=== PATIENT | male | born 1970 | race Caucasian/White ===

== ENCOUNTER → 2021-01-03 | Outpatient (CLI) | payer OTHER | LOC: MHCPAIN 13:00 | DX: M47.816 Spondylosis without myelopathy or radiculopathy, lumbar region (principal); M54.5 Low back pain; M54.6 Pain in thoracic spine; M53.3 Sacrococcygeal disorders, not elsewhere classified | CPT/HCPCS: G0463 ==

== ENCOUNTER → 2021-02-08 | Outpatient (CLI) | payer OTHER | LOC: MHCPAIN 13:01 | DX: M47.817 Spondylosis without myelopathy or radiculopathy, lumbosacral region (principal); M54.5 Low back pain; M53.3 Sacrococcygeal disorders, not elsewhere classified | CPT/HCPCS: G0463; J0461 ==

== ENCOUNTER → 2021-02-14 | Outpatient (CLI) | payer OTHER | LOC: MHCPAIN 10:57 | DX: M53.3 Sacrococcygeal disorders, not elsewhere classified (principal); M54.5 Low back pain; M47.816 Spondylosis without myelopathy or radiculopathy, lumbar region | CPT/HCPCS: G0463 ==